=== PATIENT | male | born 2000 | race Two or more races ===

== ENCOUNTER 2023-03-27 15:17 | Emergency (ER) | payer OTHER ==
[~2023-03-27] VITALS: Ht 185.4 cm; Wt 89.8 kg
[~2023-03-27 15:17] MED LIST: ALPR1TAB2 PO
[2023-03-27 20:31] VITALS: BP 110/59; TEMP 98.9; O2SAT 97
== END 2023-03-27 20:31 ==
LOC: ER 15:17
DX: Z02.89 Encounter for other administrative examinations (principal); T40.415A Adverse effect of fentanyl or fentanyl analogs, initial encounter; J45.909 Unspecified asthma, uncomplicated; Z79.899 Other long term (current) drug therapy; Z88.0 Allergy status to penicillin; Y92.89 Other specified places as the place of occurrence of the external cause